=== PATIENT | male | born 1990 | race Caucasian/White ===

== ENCOUNTER 2017-03-23 17:03 | Emergency (ER) | payer OTHER ==
[~2017-03-23] VITALS: Ht 172.7 cm; Wt 84.0 kg
[2017-03-23] MEDS ORDERED: ASPIRIN 81 MG CHEW TABLET PO ONE (18:00)
[2017-03-23 18:23] LABS: BASO # 0.1 K/mm3 (0.0-0.2); BASO % 0.9 % (0.0-1.0); EOS # 0.4 K/mm3 (0.0-0.50); EOS % 4.9 % (0.0-3.0); LARGE UNSTAINED CELL # 0.1 K/mm3 (0.0-0.4); LARGE UNSTAINED CELL % 1.7 % (0.0-4.0); LYMPH # 2.3 K/mm3 (1.5-6.5); LYMPH % 30.5 % (24.0-44.0); MEAN CORPUSCULAR HGB CONC 34.3 g/dl (32.0-36.5); MEAN CORPUSCULAR VOLUME 90.5 fl (80.0-96.0); MONO # 0.4 K/mm3 (0.0-0.8); MONO % 5.3 % (0.0-5.0); NEUTROPHILS # 4.2 K/mm3 (1.8-7.7); NEUTROPHILS % 56.6 % (36.0-66.0); PLATELET COUNT, AUTOMATED 191 k/mm3 (150-450); RED CELL DISTRIBUTION WIDTH 11.9 % (11.5-14.5); WHITE BLOOD COUNT 7.4 K/mm3 (4.0-10.0)
[2017-03-23 18:28] LABS: INR 1.07
--- NOTE | 2017-03-23 18:31 | REP ---
Chest x-ray: Two views: History: Chest pain . Comparison study: No comparison . Findings: The lungs are well inflated and free of infiltrate. The pleural angles are sharp. The heart size is normal. Pulmonary vasculature is not increased. No significant bony abnormality is seen. Impression: Negative chest x-ray. Signed by Marcel Heard MD 03/23/2017 09:19 P
[2017-03-23 18:58] LABS: ALBUMIN 4.4 GM/DL (3.2-5.2); ALBUMIN/GLOBULIN RATIO 1.47 (1.00-1.93); ALKALINE PHOSPHATASE 85 U/L (45-117); ALT/SGPT 39 U/L (12-78); ANION GAP 6 MEQ/L (8-16); AST/SGOT 23 U/L (15-37); BILIRUBIN,DIRECT 0.1 MG/DL (0.0-0.2); BILIRUBIN,TOTAL 0.5 MG/DL (0.2-1.0); BLOOD UREA NITROGEN 17 MG/DL (7-18); CALCIUM LEVEL 9.4 MG/DL (8.5-10.1); CARBON DIOXIDE LEVEL 29 MEQ/L (21-32); CHLORIDE LEVEL 103 MEQ/L (98-107); CREATININE FOR GFR 1.03 MG/DL (0.70-1.30); GLOMERULAR FILTRATION RATE > 60.0 (>60); GLUCOSE, FASTING 96 MG/DL (70-105); SODIUM LEVEL 138 MEQ/L (136-145); TOTAL PROTEIN 7.4 GM/DL (6.4-8.2)
[2017-03-23] MEDS ORDERED: IBUP-1022 PO (19:29)
[2017-03-23 20:13] VITALS: BP 114/72
--- NOTE | 2017-03-23 22:01 | ECGEPIP ---
Stationary ECG Study [facility] - ED Test Date: 2017-03-23 Pat Name: VIMAL PONCE Department: Room: - Gender: [employer]: lin : 1990 Requested By: GIL COURTNEY Order Number: [id number] Reading MD: Juana Santoyo Measurements Intervals [place] Rate: 58 P: 15 ME: 134 QRS: 67 QRSD: 89 T: 24 QT: 381 QTc: 374 Interpretive Statements SINUS BRADYCARDIA EARLY REPOLARIZATION NO PRIOR FOR COMPARISON Electronically Signed On 03-23-2017 22:01:08 EDT by Juana Snatoyo
== END 2017-03-23 20:38 | disposition home or self-care (01) ==
LOC: EDBD 17:03 → M ED 17:03
DX: M94.0 Chondrocostal junction syndrome [Tietze] (principal); Z87.891 Personal history of nicotine dependence

== ENCOUNTER 2017-06-23 23:52 | Emergency (ER) | payer OTHER ==
[~2017-06-23] VITALS: Ht 177.8 cm; Wt 88.6 kg
[~2017-06-23 23:52] MED LIST: IBUP-1022 PO
[2017-06-24] MEDS ORDERED: DERMABOND TOPICAL SKIN ADHESIVE TOP ONE (03:30)
[2017-06-24 03:45] VITALS: BP 123/72
== END 2017-06-24 03:47 | disposition home or self-care (01) ==
LOC: M ED 23:52
DX: S01.112A Laceration without foreign body of left eyelid and periocular area, initial encounter (principal); W21.210A Struck by ice hockey stick, initial encounter; Y92.330 Ice skating rink (indoor) (outdoor) as the place of occurrence of the external cause; Y93.22 Activity, ice hockey; Y99.8 Other external cause status